=== PATIENT | male | born 1995 | race Caucasian/White ===

== ENCOUNTER 2019-04-29 12:00 | Emergency (ER) | payer OTHER ==
[2019-04-29 12:06] VITALS: BP 123/76; PULSE 89; RESP 18; TEMP 98.6
--- NOTE | 2019-04-29 12:50 | ED ---
Skin/Abscess/FB HPI - General Chief complaint: Skin/Abscess/Foreign Body Stated complaint: skin problem Time Seen by Provider: 04/29/19 12:20 Source: patient, RN notes reviewed Mode of arrival: ambulatory Limitations: no limitations - History of Present Illness Initial comments: 24-year-old male presents emergency from chief complaint of right-sided facial swelling and redness. Patient states he had a pimple which he states he try to pop a few days ago but states he does increase in pain and swelling around the region. Reports no fevers or chills no headache no dizziness no neck pain or neck stiffness. - Related Data Previous Rx's Medication Instructions Recorded Cyclobenzaprine [Flexeril] 10 mg PO TID #14 tab 07/24/17 Ibuprofen 800 mg PO Q6HR PRN #20 tablet 07/24/17 Cephalexin [Keflex] 500 mg PO Q6HR #40 cap 04/29/19 Sulfamethox-Tmp 800-160Mg [Bactrim 1 each PO Q12HR #20 tab 04/29/19 Ds] Allergies Allergy/AdvReac Type Severity Reaction Status Date / Time No Known Allergies Allergy Verified 07/24/17 07:42 Review of Systems ROS Statement: Those systems with pertinent positive or pertinent negative responses have been documented in the HPI. ROS Other: All systems not noted in ROS Statement are negative. Past Medical History Past Medical History: No Reported History History of Any Multi-Drug Resistant Organisms: None Reported Past Surgical History: No Surgical Hx Reported Past Psychological History: No Psychological Hx Reported Smoking Status: Current some day smoker Past Alcohol Use History: Occasional Past Drug Use History: Marijuana General Exam Limitations: no limitations General appearance: alert, in no apparent distress Head exam: Present: atraumatic, normocephalic, normal inspection Eye exam: Present: normal appearance, PERRL, EOMI, periorbital swelling (Mild right), other (Erythematous papule in the right periorbital region with surrounding swelling and mild erythema). Absent: scleral icterus, conjunctival injection ENT exam: Present: normal oropharynx, mucous membranes moist, TM's normal bilaterally, normal external ear exam Neck exam: Present: normal inspection, full ROM. Absent: tenderness, meningismus, lymphadenopathy Respiratory exam: Present: normal lung sounds bilaterally. Absent: respiratory distress, wheezes, rales, rhonchi, stridor Cardiovascular Exam: Present: regular rate, normal rhythm, normal heart sounds. Absent: systolic murmur, diastolic murmur, rubs, gallop, clicks Course Vital Signs 04/29/19 12:04 Temperature 98.6 F Pulse Rate 89 Respiratory 18 Rate Blood Pressure 123/76 O2 Sat by Pulse 99 Oximetry Medical Decision Making - Medical Decision Making Patient was placed on Keflex and Bactrim for facial sialitis, abscess. Patient did have notable swelling. Patient will have recheck within 48 hours return for any worsening symptoms. Disposition Clinical Impression: Facial cellulitis, Abscess Disposition: HOME SELF-CARE Condition: Stable Instructions (If sedation given, give patient instructions): Abscess (ED) Additional Instructions: Please return to the Emergency Department if symptoms worsen or any other concerns. Prescriptions: Sulfamethox-Tmp 800-160Mg [Bactrim Ds] 1 each PO Q12HR #20 tab Cephalexin [Keflex] 500 mg PO Q6HR #40 cap Is patient prescribed a controlled substance at d/c from ED?: No Referrals: None,Stated [Primary Care Provider] - 1-2 days Time of Disposition: 12:50
== END 2019-04-29 12:53 | disposition home or self-care (01) ==
LOC: EC 12:00
DX: L03.213 Periorbital cellulitis (principal); L02.01 Cutaneous abscess of face; F17.200 Nicotine dependence, unspecified, uncomplicated
CPT/HCPCS: 99283

== ENCOUNTER 2019-04-29 16:22 | Emergency (ER) | payer OTHER ==
[2019-04-29] MEDS ORDERED: KETOROLAC 30 MG/ML 1 ML VIAL IVP STA (16:35)
[2019-04-29] MEDS ORDERED: DEXAMETHASONE SOD PHOSPHATE 10 MG/ML 1 ML VIAL IV STA (16:35)
--- NOTE | 2019-04-29 16:37 | ED ---
Eye Problem HPI - General Source: patient, RN notes reviewed Mode of arrival: ambulatory Limitations: no limitations <Marlon Harding - Last Filed: 04/29/19 17:08> - History of Present Illness MD chief complaint: eye pain (Right Eye Lateral Redness), eye redness -: days(s) Location: right eye Place: home If Injury: none Severity: mild Severity scale (1-10): 2 Context: recent uri Associated Symptoms: none Treatments Prior to Arrival: none <Anuj Lee - Last Filed: 04/29/19 18:27> - General Chief complaint: Eye Problems Stated complaint: Lethargic, eye pain Time Seen by Provider: 04/29/19 16:31 - History of Present Illness Initial comments: 24-year-old male presents emergency Department for recheck of his right eye swelling, facial discomfort. Patient seen here earlier today for swelling related to a pimple. Patient states that he did take first doses of both antibiotics. Patient states that he just feels lethargic and is not well. He reports no fever at home. He states he did have 1 episode of chills. He has no ocular pain he does complain of mild headache with no neck pain or neck stiffness. Patient has a benign past history is NO KNOWN DRUG ALLERGIES. Patient has not taken any recent Tylenol Motrin (Marlon Harding) - Related Data Previous Rx's Medication Instructions Recorded Cyclobenzaprine [Flexeril] 10 mg PO TID #14 tab 07/24/17 Ibuprofen 800 mg PO Q6HR PRN #20 tablet 07/24/17 Cephalexin [Keflex] 500 mg PO Q6HR #40 cap 04/29/19 Sulfamethox-Tmp 800-160Mg [Bactrim 1 each PO Q12HR #20 tab 04/29/19 Ds] Allergies Allergy/AdvReac Type Severity Reaction Status Date / Time No Known Allergies Allergy Verified 04/29/19 16:28 Review of Systems ROS Other: All systems not noted in ROS Statement are negative. <Marlon Harding - Last Filed: 04/29/19 17:08> ROS Other: All systems not noted in ROS Statement are negative. <Anuj Lee - Last Filed: 04/29/19 18:27> ROS Statement: Those systems with pertinent positive or pertinent negative responses have been documented in the HPI. Past Medical History Past Medical History: No Reported History History of Any Multi-Drug Resistant Organisms: None Reported Past Surgical History: No Surgical Hx Reported Past Psychological History: No Psychological Hx Reported Smoking Status: Current some day smoker Past Alcohol Use History: Occasional Past Drug Use History: Marijuana <Marlon Harding - Last Filed: 04/29/19 17:08> General Exam Limitations: no limitations General appearance: alert, in no apparent distress Head exam: Present: atraumatic, normocephalic, normal inspection Eye exam: Present: PERRL, EOMI (No entrapment no discomfort with range of motion), periorbital swelling (Mild right), periorbital tenderness (Right lateral periorbital to right temporal region). Absent: normal appearance, scleral icterus, conjunctival injection Pupils: Present: normal accommodation ENT exam: Present: normal exam, normal oropharynx, mucous membranes moist, TM's normal bilaterally, normal external ear exam Neck exam: Present: normal inspection, full ROM. Absent: tenderness, meningismus, lymphadenopathy Respiratory exam: Present: normal lung sounds bilaterally. Absent: respiratory distress, wheezes, rales, rhonchi, stridor Cardiovascular Exam: Present: regular rate, normal rhythm, normal heart sounds. Absent: systolic murmur, diastolic murmur, rubs, gallop, clicks Neurological exam: Present: alert, oriented X3, CN II-XII intact Skin exam: Present: warm, dry, intact, normal color. Absent: rash <Marlon Harding M - Last Filed: 04/29/19 17:08> General appearance: alert, in no apparent distress Head exam: Present: atraumatic, normocephalic, normal inspection Eye exam: Present: normal appearance, PERRL, EOMI. Absent: scleral icterus, conjunctival injection, periorbital swelling ENT exam: Present: normal exam, mucous membranes moist Neck exam: Present: normal inspection. Absent: tenderness, meningismus, lymphadenopathy Respiratory exam: Present: normal lung sounds bilaterally. Absent: respiratory distress, wheezes, rales, rhonchi, stridor Cardiovascular Exam: Present: regular rate, normal rhythm, normal heart sounds. Absent: systolic murmur, diastolic murmur, rubs, gallop, clicks GI/Abdominal exam: Present: soft, normal bowel sounds. Absent: distended, tenderness, guarding, rebound, rigid Extremities exam: Present: normal inspection, full ROM, normal capillary refill. Absent: tenderness, pedal edema, joint swelling, calf tenderness Back exam: Present: normal inspection Neurological exam: Present: alert, oriented X3, CN II-XII intact Psychiatric exam: Present: normal affect, normal mood Skin exam: Present: warm, dry, intact, normal color. Absent: rash <Anuj Lee - Last Filed: 04/29/19 18:27> - General Exam Comments Initial Comments: R eye swelling and pain (Anuj Lee) Course Vital Signs 04/29/19 16:26 Temperature 98.9 F Pulse Rate 88 Respiratory 20 Rate Blood Pressure 125/63 O2 Sat by Pulse 100 Oximetry Medical Decision Making - Lab Data Result diagrams: 04/29/19 16:44 04/29/19 16:44 <Anuj Lee - Last Filed: 04/29/19 18:27> - Medical Decision Making 24 male the ER with revisit for pain patient has infection from abrasion from his head, labwork is normal will continue antibiotics and discharged (Anuj Lee) - Lab Data Lab Results 04/29/19 04/29/19 04/29/19 Range/Units 16:44 16:44 16:44 WBC 8.8 (3.8-10.6) k/uL RBC 4.99 (4.30-5.90) m/uL Hgb 15.8 (13.0-17.5) gm/dL Hct 44.3 (39.0-53.0) % MCV 88.8 (80.0-100.0) fL MCH 31.6 (25.0-35.0) pg MCHC 35.5 (31.0-37.0) g/dL RDW 11.6 (11.5-15.5) % Plt Count 221 (150-450) k/uL Neutrophils % 75 % Lymphocytes % 15 % Monocytes % 6 % Eosinophils % 2 % Basophils % 1 % Neutrophils # 6.6 (1.3-7.7) k/uL Lymphocytes # 1.3 (1.0-4.8) k/uL Monocytes # 0.5 (0-1.0) k/uL Eosinophils # 0.1 (0-0.7) k/uL Basophils # 0.1 (0-0.2) k/uL Sodium 142 (137-145) mmol/L Potassium 4.4 (3.5-5.1) mmol/L Chloride 107 (98-107) mmol/L Carbon Dioxide 27 (22-30) mmol/L Anion Gap 8 mmol/L BUN 16 (9-20) mg/dL Creatinine 0.88 (0.66-1.25) mg/dL Est GFR (CKD-EPI)AfAm >90 (>60 ml/min/1.73 sqM) Est GFR (CKD-EPI)NonAf >90 (>60 ml/min/1.73 sqM) Glucose 83 (74-99) mg/dL Plasma Lactic Acid Jg 1.1 (0.7-2.0) mmol/L Calcium 10.0 (8.4-10.2) mg/dL Total Bilirubin 0.4 (0.2-1.3) mg/dL AST 24 (17-59) U/L ALT 17 L (21-72) U/L Alkaline Phosphatase 69 (38-126) U/L Total Protein 7.8 (6.3-8.2) g/dL Albumin 4.9 (3.5-5.0) g/dL Disposition Is patient prescribed a controlled substance at d/c from ED?: No Time of Disposition: 17:09 <Marlon Harding - Last Filed: 04/29/19 17:08> <Anuj Lee - Last Filed: 04/29/19 18:27> Clinical Impression: Facial cellulitis, Abscess Disposition: HOME SELF-CARE Condition: Stable Instructions (If sedation given, give patient instructions): Abscess (ED) Additional Instructions: Please return to the Emergency Department if symptoms worsen or any other concerns. Referrals: None,Stated [Primary Care Provider] - 1-2 days
[2019-04-29 17:20] LABS: Basophils # (A) 0.1 k/uL (0-0.2); Basophils % (A) 1 %; Eosinophils # (A) 0.1 k/uL (0-0.7); Eosinophils % (A) 2 %; HCT 44.3 % (39.0-53.0); HGB 15.8 gm/dL (13.0-17.5); Lymphocytes # (A) 1.3 k/uL (1.0-4.8); Lymphocytes % (A) 15 %; MCH 31.6 pg (25.0-35.0); MCHC 35.5 g/dL (31.0-37.0); MCV 88.8 fL (80.0-100.0); Mean Platelet Volume 6.7; Monocytes # (A) 0.5 k/uL (0-1.0); Monocytes % (A) 6 %; Neutrophils # (A) 6.6 k/uL (1.3-7.7); Neutrophils % (A) 75 %; Platelet Count 221 k/uL (150-450); RBC 4.99 m/uL (4.30-5.90); RDW 11.6 % (11.5-15.5); WBC 8.8 k/uL (3.8-10.6)
[2019-04-29 17:25] LABS: ALT 17 U/L (21-72); AST 24 U/L (17-59); African American GFR (CKD) >90 (>60 ml/min/1.73 sqM); Albumin 4.9 g/dL (3.5-5.0); Alkaline Phosphatase 69 U/L (38-126); Anion Gap 8 mmol/L; Blood Urea Nitrogen 16 mg/dL (9-20); Carbon Dioxide 27 mmol/L (22-30); Chloride 107 mmol/L (98-107); Glucose 83 mg/dL (74-99); Sodium 142 mmol/L (137-145); Total Bilirubin 0.4 mg/dL (0.2-1.3); Total Protein 7.8 g/dL (6.3-8.2)
[2019-04-29 17:29] LABS: Potassium 4.4 mmol/L (3.5-5.1)
[2019-04-29 18:48] VITALS: BP 135/94; PULSE 84; RESP 18; TEMP 98.8
== END 2019-04-29 18:46 | disposition home or self-care (01) ==
LOC: EC 16:22
DX: L03.211 Cellulitis of face (principal); L02.01 Cutaneous abscess of face; F17.200 Nicotine dependence, unspecified, uncomplicated
CPT/HCPCS: 36415; 80053; 83605; 85025; 87040; 99283; 96374; 96375; J1100; J1885

== ENCOUNTER 2020-04-16 22:49 | Emergency (ER) | payer OTHER ==
[2020-04-16] MEDS ORDERED: PANTOPRAZOLE 40 MG/10 ML VIAL IVP STA (23:12)
[2020-04-16] MEDS ORDERED: ONDANSETRON 4 MG/2 ML VIAL IVP STA (23:12)
[2020-04-16] MEDS ORDERED: SODIUM CHLORIDE 0.9% 1,000 ML IV STA ×2 (23:12)
[2020-04-16] MEDS ORDERED: DIAZEPAM 5 MG/ML 2 ML INJ IVP STA (23:12)
--- NOTE | 2020-04-16 23:14 | ED ---
Chest Pain HPI - General Chief Complaint: Chest Pain Stated Complaint: Heart problems Time Seen by Provider: 04/16/20 22:57 Source: patient, RN notes reviewed, old records reviewed Mode of arrival: wheelchair Limitations: no limitations - History of Present Illness Initial Comments: s a 22-year-old male DF for evaluation, patient presents with anxietystates she was exposed to mass yesterday was seen in the ER yesterday and presents earlier today for inability to sleep persistent shortness of breath and limits racing heart. Patient does drink facility is not homicidal or suicidal MD Complaint: chest pain, other (anxiety) -: days(s) Onset: awoke with symptoms, associated with drug use Pain Location: substernal Pain Radiation: none Severity: moderate Severity scale (1-10): 6 Quality: tightness, heaviness Consistency: constant Improves With: nothing Worsens With: nothing Context: new medications Anginal Symptoms: diaphoresis, dyspnea, sense of impending doom Other Symptoms: palpitations Treatments Prior to Arrival: none - Related Data Previous Rx's Medication Instructions Recorded Cyclobenzaprine [Flexeril] 10 mg PO TID #14 tab 07/24/17 Ibuprofen 800 mg PO Q6HR PRN #20 tablet 07/24/17 Cephalexin [Keflex] 500 mg PO Q6HR #40 cap 04/29/19 Sulfamethox-Tmp 800-160Mg [Bactrim 1 each PO Q12HR #20 tab 04/29/19 Ds] Allergies Allergy/AdvReac Type Severity Reaction Status Date / Time No Known Allergies Allergy Verified 04/17/20 17:11 Review of Systems ROS Statement: Those systems with pertinent positive or pertinent negative responses have been documented in the HPI. ROS Other: All systems not noted in ROS Statement are negative. EKG Findings - EKG Comments: EKG Findings:: G is sinus rhythm 71 ID 154 QRS 98 QTc 4:30 Past Medical History Past Medical History: No Reported History History of Any Multi-Drug Resistant Organisms: None Reported Past Surgical History: No Surgical Hx Reported Past Psychological History: No Psychological Hx Reported Smoking Status: Current every day smoker Past Alcohol Use History: Rare Past Drug Use History: Marijuana General Exam Limitations: no limitations General appearance: anxious Head exam: Present: atraumatic, normocephalic, normal inspection Eye exam: Present: normal appearance, PERRL, EOMI. Absent: scleral icterus, conjunctival injection, periorbital swelling ENT exam: Present: normal exam, mucous membranes moist Neck exam: Present: normal inspection. Absent: tenderness, meningismus, lymphadenopathy Respiratory exam: Present: normal lung sounds bilaterally. Absent: respiratory distress, wheezes, rales, rhonchi, stridor Cardiovascular Exam: Present: regular rate, normal rhythm, normal heart sounds. Absent: systolic murmur, diastolic murmur, rubs, gallop, clicks GI/Abdominal exam: Present: soft, normal bowel sounds. Absent: distended, tenderness, guarding, rebound, rigid Extremities exam: Present: normal inspection, full ROM, normal capillary refill. Absent: tenderness, pedal edema, joint swelling, calf tenderness Back exam: Present: normal inspection Neurological exam: Present: alert, oriented X3, CN II-XII intact Psychiatric exam: Present: normal affect, normal mood Skin exam: Present: warm, dry, intact, normal color. 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 No significant issues found here in the ER patient can be discharged home Disposition Clinical Impression: Atypical chest pain, Anxiety reaction Disposition: HOME SELF-CARE Condition: Good Instructions (If sedation given, give patient instructions): Anxiety (ED) Is patient prescribed a controlled substance at d/c from ED?: No Referrals: Anders Pratt MD [Primary Care Provider] - 1-2 days
--- NOTE | 2020-04-16 23:42 | XR ---
EXAMINATION TYPE: XR chest 2V DATE OF EXAM: 04/16/2020 COMPARISON: NONE HISTORY: Trauma. Pain. TECHNIQUE: FINDINGS: Heart and mediastinum are normal. Lungs are clear. Diaphragm is normal. Bony thorax is inta ct. There is no sign of pneumothorax. IMPRESSION: Normal chest.
[2020-04-16 23:43] LABS: ALT 13 U/L (4-49); AST 22 U/L (17-59); African American GFR (CKD) >90 (>60 ml/min/1.73 sqM); Albumin 4.7 g/dL (3.5-5.0); Alkaline Phosphatase 59 U/L (38-126); Anion Gap 10 mmol/L; Blood Urea Nitrogen 13 mg/dL (9-20); Carbon Dioxide 23 mmol/L (22-30); Chloride 105 mmol/L (98-107); Creatine Kinase 60 U/L (55-170); Glucose 76 mg/dL (74-99); Non-African American GFR(CKD) >90 (>60 ml/min/1.73 sqM); Potassium 3.7 mmol/L (3.5-5.1); Sodium 138 mmol/L (137-145); Total Bilirubin 1.2 mg/dL (0.2-1.3); Total Protein 7.1 g/dL (6.3-8.2)
[2020-04-16 23:48] LABS: Basophils # (A) 0.1 k/uL (0-0.2); Basophils % (A) 2 %; Eosinophils # (A) 0.2 k/uL (0-0.7); Eosinophils % (A) 3 %; HGB 15.9 gm/dL (13.0-17.5); Lymphocytes # (A) 1.8 k/uL (1.0-4.8); Lymphocytes % (A) 32 %; MCH 30.9 pg (25.0-35.0); MCHC 33.9 g/dL (31.0-37.0); MCV 91.3 fL (80.0-100.0); Mean Platelet Volume 7.4; Monocytes # (A) 0.5 k/uL (0-1.0); Monocytes % (A) 10 %; Neutrophils # (A) 2.8 k/uL (1.3-7.7); Neutrophils % (A) 51 %; Platelet Count 246 k/uL (150-450); RBC 5.14 m/uL (4.30-5.90); WBC 5.6 k/uL (3.8-10.6)
[2020-04-16 23:57] LABS: INR 1.2 (<1.2); Partial Thromboplastin Time 25.3 sec (22.0-30.0); Prothrombin Time 11.9 sec (9.0-12.0)
[2020-04-17 00:01] LABS: D-Dimer <0.17 mg/L FEU (<0.60)
[2020-04-17 01:48] VITALS: BP 117/61; PULSE 84; RESP 19; TEMP 98.8
== END 2020-04-17 01:53 | disposition home or self-care (01) ==
LOC: EC 22:49
DX: R07.89 Other chest pain (principal); F41.9 Anxiety disorder, unspecified; F17.200 Nicotine dependence, unspecified, uncomplicated
CPT/HCPCS: 36415; 93005; 85379; 83880; 80053; 82550; 83690; 83735; 84484; 85025; 85610; 85730; 71046; 99285; 96374; 96375 ×2; 96361 ×2; J3360; J2405; C9113

== ENCOUNTER 2020-04-17 17:05 | Emergency (ER) | payer OTHER ==
[2020-04-17 17:11] VITALS: BP 133/69; PULSE 85; RESP 18; TEMP 98.1
[2020-04-17] MEDS ORDERED: ALPRAZolam 0.5 MG TAB PO STA (17:53)
--- NOTE | 2020-04-17 17:55 | ED ---
Recheck HPI - General Chief Complaint: Recheck/Abnormal Lab/Rx Stated Complaint: fever Time Seen by Provider: 04/17/20 17:29 Source: patient Mode of arrival: ambulatory Limitations: no limitations - History of Present Illness Initial Comments: Patient is a 25-year-old male presenting to the emergency department with a chief complaint of not feeling well. Patient reports 3 days ago he smoked some weed and inhaled what he believed to be cocaine, however this turned out to be methamphetamine. Patient states he believes he will overdose he went to another emergency department and was discharged same day. Patient reports night continues to have increased anxiety and top of his typical has had. Patient states he is having some chest discomfort with rapid breathing, flushing sensation in his hands and feet along with some tingling. States that he was in emergency department yesterday and was discharged and it was advised to have some bedrest to follow-up with his primary care. However, patient states that he continues to think about the illegal substances that he took in his anxiety is going "through the roof" - Related Data Previous Rx's Medication Instructions Recorded Cyclobenzaprine [Flexeril] 10 mg PO TID #14 tab 07/24/17 Ibuprofen 800 mg PO Q6HR PRN #20 tablet 07/24/17 Cephalexin [Keflex] 500 mg PO Q6HR #40 cap 04/29/19 Sulfamethox-Tmp 800-160Mg [Bactrim 1 each PO Q12HR #20 tab 04/29/19 Ds] Allergies Allergy/AdvReac Type Severity Reaction Status Date / Time No Known Allergies Allergy Verified 04/17/20 17:11 Review of Systems ROS Statement: Those systems with pertinent positive or pertinent negative responses have been documented in the HPI. ROS Other: All systems not noted in ROS Statement are negative. Past Medical History Past Medical History: No Reported History History of Any Multi-Drug Resistant Organisms: None Reported Past Surgical History: No Surgical Hx Reported Past Psychological History: No Psychological Hx Reported Smoking Status: Current every day smoker Past Alcohol Use History: Rare Past Drug Use History: Marijuana, Methamphetamine General Exam Limitations: no limitations General appearance: alert, in no apparent distress, anxious Head exam: Present: atraumatic, normocephalic, normal inspection Eye exam: Present: normal appearance, PERRL, EOMI Pupils: Present: normal accommodation ENT exam: Present: normal exam, normal oropharynx, mucous membranes moist, TM's normal bilaterally, normal external ear exam Neck exam: Present: normal inspection, full ROM. Absent: tenderness Respiratory exam: Present: normal lung sounds bilaterally. Absent: respiratory distress, wheezes, rales Cardiovascular Exam: Present: regular rate, normal rhythm, normal heart sounds GI/Abdominal exam: Present: soft. Absent: distended, tenderness, guarding Extremities exam: Present: normal inspection, full ROM, normal capillary refill. Absent: tenderness, pedal edema, joint swelling Back exam: Present: normal inspection, full ROM. Absent: tenderness, CVA tenderness (R), CVA tenderness (L) Neurological exam: Present: alert, oriented X3, normal gait Psychiatric exam: Present: normal affect, anxious Skin exam: Present: warm, dry, intact, normal color Course Vital Signs 04/17/20 17:08 Temperature 98.1 F Pulse Rate 85 Respiratory 18 Rate Blood Pressure 133/69 O2 Sat by Pulse 100 Oximetry - Reevaluation(s) Reevaluation #1: 04/17/20 18:52 Medical record reviewed Medical Decision Making - Medical Decision Making Patient is a 25-year-old male presenting to emergency Department with chief complaint of not feeling well. On physical examination, the patient is feeling anxious with a flush-like feelings. Patient had a full cardiac workup yesterday and it was unremarkable. J curve is also present in the EKG from yesterday. Patient will be admitted patient continues to be anxious. I gave the patient Xanax. Advised to follow-up with his primary care physician which she has an appointment next week. Strict return parameters were thoroughly discussed the patient was understanding and agreeable. Case discussed with physician. - EKG Data EKG Comments: Sinus arrhythmia. Ventricular rate 62, RI 162, QRS 102, QTC 399. Disposition Clinical Impression: Atypical chest pain, Acute anxiety Disposition: HOME SELF-CARE Condition: Stable Instructions (If sedation given, give patient instructions): Anxiety (ED) Additional Instructions: Please follow up with her primary care physician. Return to emergency department if symptoms worsen. Is patient prescribed a controlled substance at d/c from ED?: No Referrals: Anders Pratt MD [Primary Care Provider] - 1-2 days Time of Disposition: 18:54
== END 2020-04-17 19:01 | disposition home or self-care (01) ==
LOC: EC 17:05
DX: F41.9 Anxiety disorder, unspecified (principal); R07.89 Other chest pain; R06.3 Periodic breathing; F17.200 Nicotine dependence, unspecified, uncomplicated
CPT/HCPCS: 93005; 99283

== ENCOUNTER 2020-10-14 00:13 | Emergency (ER) | payer OTHER ==
[2020-10-14 00:20] VITALS: BP 138/65; PULSE 70; RESP 18; TEMP 98
--- NOTE | 2020-10-14 00:39 | ED ---
Psych HPI - General Chief Complaint: Psychiatric Symptoms Stated Complaint: Petition Time Seen by Provider: 10/14/20 00:38 Source: patient, police, RN notes reviewed, old records reviewed Mode of arrival: ambulatory Limitations: no limitations - History of Present Illness Initial Comments: This is a 25-year-old male presented for evaluation under petition by PD for evaluation regarding suicidal psychiatric breath. Patient denying suicidal thoughts as he wanted to clear his mind bilaterally. No fundic call EMS EMS and PD stated patient was making suicidal threats MD Complaint: suicidal ideation, feels depressed -: unknown Associated Psychiatric Symptoms: depression, suicidal ideation History of same: No Quality: intermittent, getting worse Worsens With: none Context: significant life stressor Associated Symptoms: denies other symptoms Treatments Prior to Arrival: placed on mental health hold If Self Harm: admits thoughts of self harm - Related Data Previous Rx's Medication Instructions Recorded Cyclobenzaprine [Flexeril] 10 mg PO TID #14 tab 07/24/17 Ibuprofen 800 mg PO Q6HR PRN #20 tablet 07/24/17 Cephalexin [Keflex] 500 mg PO Q6HR #40 cap 04/29/19 Sulfamethox-Tmp 800-160Mg [Bactrim 1 each PO Q12HR #20 tab 04/29/19 Ds] Allergies Allergy/AdvReac Type Severity Reaction Status Date / Time No Known Allergies Allergy Verified 10/14/20 00:20 Review of Systems ROS Statement: Those systems with pertinent positive or pertinent negative responses have been documented in the HPI. ROS Other: All systems not noted in ROS Statement are negative. Past Medical History Past Medical History: No Reported History History of Any Multi-Drug Resistant Organisms: None Reported Past Surgical History: No Surgical Hx Reported Past Psychological History: No Psychological Hx Reported Smoking Status: Vaper Past Alcohol Use History: Occasional Past Drug Use History: Marijuana, Methamphetamine General Exam Limitations: no limitations General appearance: alert, in no apparent distress Head exam: Present: atraumatic, normocephalic, normal inspection Eye exam: Present: normal appearance, PERRL, EOMI. Absent: scleral icterus, conjunctival injection, periorbital swelling ENT exam: Present: normal exam, mucous membranes moist Neck exam: Present: normal inspection. Absent: tenderness, meningismus, lymphadenopathy Respiratory exam: Present: normal lung sounds bilaterally. Absent: respiratory distress, wheezes, rales, rhonchi, stridor Cardiovascular Exam: Present: regular rate, normal rhythm, normal heart sounds. Absent: systolic murmur, diastolic murmur, rubs, gallop, clicks GI/Abdominal exam: Present: soft, normal bowel sounds. Absent: distended, tenderness, guarding, rebound, rigid Extremities exam: Present: normal inspection, full ROM, normal capillary refill. Absent: tenderness, pedal edema, joint swelling, calf tenderness Back exam: Present: normal inspection Neurological exam: Present: alert, oriented X3, CN II-XII intact Psychiatric exam: Present: normal affect, normal mood Skin exam: Present: warm, dry, intact, normal color. Absent: rash Course Vital Signs 10/14/20 00:18 Temperature 98 F Pulse Rate 70 Respiratory 18 Rate Blood Pressure 138/65 O2 Sat by Pulse 100 Oximetry - Reevaluation(s) Reevaluation #1: 10/14/20 02:46 Medical record is reviewed Medically clear for psychiatric evaluation Medical Decision Making - Medical Decision Making 25 male seen and evaluated psychiatry, patient deemed stable for discharge home Disposition Clinical Impression: Adjustment reaction of adult life, Depression Disposition: HOME SELF-CARE Condition: Good Instructions (If sedation given, give patient instructions): Stress (ED) Is patient prescribed a controlled substance at d/c from ED?: No Referrals: Anders Pratt MD [Primary Care Provider] - 1-2 days
== END 2020-10-14 04:08 | disposition home or self-care (01) ==
LOC: EC 00:13
DX: F43.20 Adjustment disorder, unspecified (principal); F32.9 Major depressive disorder, single episode, unspecified; F12.90 Cannabis use, unspecified, uncomplicated
CPT/HCPCS: 82075; 99284

== ENCOUNTER 2021-04-27 19:28 | Emergency (ER) | payer OTHER ==
[2021-04-27 19:53] VITALS: BP 123/48; PULSE 87; RESP 19; TEMP 98.5
== END 2021-04-27 21:22 ==
LOC: EC 19:28
DX: R07.9 Chest pain, unspecified (principal)
CPT/HCPCS: 93005; 99499